=== PATIENT | male | born 1995 | race Two or more races ===

== ENCOUNTER 2018-05-20 22:11 | Emergency (ER) | payer OTHER ==
[2018-05-20] MEDS ORDERED: Albuterol/Ipratropium NEB.SOL* Albuterol 2.5 MG/Ipratropium 0.5 MG 3 ML INH ONE (22:55)
--- NOTE | 2018-05-20 23:34 | ED ---
Throat Pain/Nasal Congestion - HPI Summary HPI Summary: Patient complains of chest pressure and SOB after swallowing tapioca while drinking bubble Tea. Patient subsequently had some significant bout of coughing which has since improved. Patient believes foreign body still in his lungs. Patient tolerating oral fluids - History of Current Complaint Chief Complaint: EDThroatPain Time Seen by Provider: 05/20/18 22:21 Hx Obtained From: Patient Onset/Duration: Sudden Onset Severity: Moderate Associated Signs And Symptoms: Positive: Negative Cough: Nonproductive - Allergies/Home Medications Allergies/Adverse Reactions: Allergies Allergy/AdvReac Type Severity Reaction Status Date / Time Penicillins Allergy Difficulty Verified 05/20/18 22:19 Breathing PMH/Surg Hx/FS Hx/Imm Hx Endocrine/Hematology History: Denies: Hx Anticoagulant Therapy Cardiovascular History: Denies: Hx Cardiac Arrest Respiratory History: Denies: Hx Asthma, Hx Chronic Obstructive Pulmonary Disease (COPD) Infectious Disease History: No Infectious Disease History: Denies: Traveled Outside the [place] in Last 30 Days - Social History Alcohol Use: Occasionally Substance Use Type: Reports: None Smoking Status (MU): Never Smoked Tobacco Review of Systems Constitutional: Negative Eyes: Negative ENT: Negative Cardiovascular: Negative Positive: Cough Gastrointestinal: Negative Genitourinary: Negative Musculoskeletal: Negative Skin: Negative Neurological: Negative Psychological: Normal All Other Systems Reviewed And Are Negative: Yes Physical Exam Triage Information Reviewed: Yes Vital Signs On Initial Exam: Initial Vitals Temp Pulse Resp BP Pulse Ox 98.2 F 97 22 148/102 98 05/20/18 22:16 05/20/18 22:16 05/20/18 22:16 05/20/18 22:16 05/20/18 22:16 Vital Signs Reviewed: Yes Appearance: Positive: Well-Appearing Skin: Positive: Warm Head/Face: Positive: Normal Head/Face Inspection Eyes: Positive: Normal ENT: Positive: Normal ENT inspection Neck: Positive: Supple Respiratory/Lung Sounds: Positive: Clear to Auscultation Cardiovascular: Positive: Normal Abdomen Description: Positive: Nontender Musculoskeletal: Positive: Normal Neurological: Positive: Normal Psychiatric: Positive: Normal AVPU Assessment: Alert - [place] Coma Scale Best Eye Response: 4 - Spontaneous Best Motor Response: 6 - Obeys Commands Best Verbal Response: 5 - Oriented Coma Scale Total: 15 Diagnostics - Vital Signs Vital Signs Temp Pulse Resp BP Pulse Ox 05/20/18 23:10 77 14 100 05/20/18 22:16 98.2 F 97 22 148/102 98 - Laboratory Lab Statement: Any lab studies that have been ordered have been reviewed, and results considered in the medical decision making process. EENT Course/Dx - Course Course Of Treatment: Patient complains of chest pressure and SOB after swallowing tapioca while drinking bubble Tea. Patient subsequently had some significant bout of coughing which has since improved. Patient believes foreign body still in his lungs. Patient tolerating oral fluids. Physical exam unremarkable. Chest x-ray unremarkable. Vital signs are normal limits. - Diagnoses Provider Diagnoses: Observation following foreign body ingestion Discharge - Sign-Out/Discharge Documenting (check all that apply): Patient Departure - Discharge Plan Condition: Stable Disposition: HOME Patient Education Materials: Foreign Body Ingestion (ED) Forms: *School Release Referrals: No Primary Care Phys,NOPCP [Primary Care Provider] - Tracie Prasad MD [Medical Doctor] - Additional Instructions: If symptoms persist follow-up with outdoor power equipment mechanic Dr. Prasad. Return to the ED for any new or worsening symptoms - Billing Disposition and Condition Condition: STABLE Disposition: Home
[2018-05-21 00:04] VITALS: BP 0/0
== END 2018-05-21 00:01 | disposition home or self-care (01) ==
LOC: ED 22:11
DX: T18.9XXA Foreign body of alimentary tract, part unspecified, initial encounter (principal); R06.02 Shortness of breath; R05 Cough; X58.XXXA Exposure to other specified factors, initial encounter; Y92.9 Unspecified place or not applicable
CPT/HCPCS: 71045; 99282; A9270-GY